=== PATIENT | male | born 1955 | race Caucasian/White ===

== ENCOUNTER 2023-07-21 12:41 | Outpatient (CLI) | payer MEDICARE, BC, SELFPAY ==
--- NOTE | 2023-07-21 13:00 | CRLHL7_ITS ---
For Patients: As a result of the Century Cures Act, medical imaging exams and procedure reports are released immediately into your electronic medical record. You may view this report before your referring provider. If you have questions, please contact your health care provider. INDICATION: Transient ischemic attack. TECHNIQUE: CTA head with contrast bolus tracking, 3D angiographic rendering using maximum intensity projection (MIP) and images permanently archived. FINDINGS: There is scattered intracranial atherosclerotic disease. There is normal opacification of the intracranial vasculature. There is no large vessel occlusion. No aneurysm is identified. IMPRESSION: No large vessel occlusion or significant intracranial stenosis. Please note that all CT scans at this facility use dose modulation, iterative reconstruction, and/or weight-based dosing when appropriate to reduce radiation dose to as low as reasonably achievable. Dictated by Inder Coughlin MD @ 07/21/2023 4:07:41 PM (Electronically Signed)
--- OUTSIDE RECORDS SUMMARY | 2023-07-21 13:22 | XMS_ITS | Clinical Summary ---
Author Name Unknown Organization [facility] Address [place], [place] [address] Care Team Providers Care Greeting Card Writer Name Role Phone Collins Garner MD Primary Care Provider [phone] Mehdi Mays MD Unavailable Allergies No known active allergies Medications Medication Sig Dispensed Refills Start Date End Date Status aspirin (ECOTRIN) 81 mg enteric coated tablet Take 1 tablet by mouth once daily with a meal. 0 06/11/2017 Active zinc 50 mg tablet 0 06/28/2021 Active magnesium 250 mg tab 0 06/28/2021 Acti ve vitamin D3/vitamin K2, MK4, (K2 PLUS D3 ORAL) 0 06/29/2021 Active coenzyme q10 100 mg cap Take 3 Capsules (300 mg) by mouth once daily. 0 09/25/2021 Active losartan (COZAAR) 50 mg tabletIndications:HT N (hypertension) Take 1 Tablet (50 mg) by mouth once daily. 90 Tablet 3 08/13/2022 Active metFORMIN (GLUCOPHAGE XR) 500 mg Extended-Release tabletIndications:Ty pe 2 diabetes mellitus without complication, without long-term current use of insulin (HC) Take 4 Tablets (2,000 mg) by mouth once daily with evening meal. 360 Tablet 3 08/13/2022 Active omeprazole 20 mg tabletIndications:Ch ronic GERD Take 1 Tablet (20 mg) by mouth once daily before a meal. 90 Tablet 3 08/13/2022 Active rosuvastatin (CRESTOR) 40 mg tabletIndications:Hy perlipidemia, unspecified hyperlipidemia type Take 1 Tablet (40 mg) by mouth at bedtime. 90 Tablet 3 08/13/2022 Active hydroCHLOROthiazide (HCTZ) 25 mg tabletIndications:HT N (hypertension) Take 1 Tablet (25 mg) by mouth once daily. 90 Tablet 3 08/13/2022 Active ezetimibe (ZETIA) 10 mg tabletIndications:Hy perlipidemia, unspecified hyperlipidemia type Take 1 Tablet (10 mg) by mouth once daily. Further refills require cardiology follow up 90 Tablet 3 08/13/2022 Active atenoloL (TENORMIN) 25 mg tabletIndications:HT N (hypertension) Take 1 Tablet (25 mg) by mouth once daily. 90 Tablet 3 08/13/2022 Active blood-glucose meterIndications:Typ e 2 diabetes mellitus without complication, without long-term current use of insulin (HC) [employer] brand per insurance. Dispense meter, test strips, lancets covered by pt ins. E11.9 NIDDM type II - Test 1 time/day 1 Each 0 08/13/2022 Active FreeStyle Chun 2 ReaderIndications:Ty pe 2 diabetes mellitus without complication, without long-term current use of insulin (HC) To be used to read blood sugars per certified flex endoscope reprocessor's directions. 1 Each 0 08/13/2022 Active FreeStyle Chun 2 SensorIndications:Ty pe 2 diabetes mellitus without complication, without long-term current use of insulin (HC) Change sensor every 14 days 6 Each 3 08/13/2022 Active CPAPIndications:MARCIO (obstructive sleep apnea),Dry mouth CPAP machine for home use at pressure: 4-9 cmw , Heated humidifier x 1 q 5 yr, Humidifier chamber x 1 q 6 mo, nasal mask x1 q 3mos, with cushion x 2 q mo, Heated tubing x 1 q 3 mo, Headgear x 1 q 6 mo, Filters: Disposable x 2 q mo non-disposable filters x1 q 6mo, Length of Need: 99 months, Frequency of use: Daily 1 Each 09/01/2022 Active semaglutide (Ozempic) 2 mg/3 mL penIndications:Type 2 diabetes mellitus without complication, without long-term current use of insulin (HC) Inject 0.375 mL (0.25 mg) subcutaneous once weekly. 3 mL 0 02/03/2023 Active sildenafiL, pulm.hypertension, (REVATIO) 20 mg tabletIndications:Er ectile dysfunction, unspecified erectile dysfunction type TAKE 1 TO 5 TABLETS BY MOUTH 30 MINUTES PRIOR TO INTERCOURSE (START AT LOWER DOSE, INCREASE IF NEEDED) MAX OF ONE DOSE PER 24 HOURS 30 Tablet 0 06/07/2023 Active Active Problems Problem Noted Date Diagnosed Date Appendicitis 06/24/2021 Type 2 diabetes mellitus wit h other circulatory complications 06/24/2021 Hyperlipidemia 06/04/2014 MARCIO 05/14/2014 AHI-8, REM 53 05/21/2014 HTN (hypertension) 04/27/2014 Diabetes mellitus, type 2 04/27/2014 Erectile dysfunction 09/22/2012 GERD (gastroesophageal reflux disease) 0 Benign neoplasm of colon 07/02/2009 Overview: Colonoscopy 06/2008 polyps repeat in 3 year Colonoscopy 05/2012 polyp repeat in 5 years Colonoscopy 10/2017 diverticulosis, repeat in 5 years Colonoscopy 10/2022 SSA, repeat in 5 years Resolved Problems Problem Noted Date Diagnosed Date Resolved Date Chronic rhinosinusitis 05/31/201206/24 Skin tag 05/31/2012 06/24/2018 Fibroma 05/31/2012 06/24/2018 Overview: Right lower leg Obesity, unspecified 05/31/2012 018 Sleep disorder 06/23/2010 06/04/2014 Prediabetes 05/06/2010 04/27/2014 MARCIO (obstructive sleep apnea) 05/06/2010 10/04/2014 Tobacco abuse 05/06/2010 05/13/2015 Colon cancer screening 05/27/200905/06 Unspecified essential hypertension 01/19/2009 04/27/2014 Other and unspecified hyperlipidemia 01/19/2009 06/04/2014 Elevated glucose 01/19/2009 05/06/2010 Encounters Date Type Department Care Team Description 07/06/2023 11:40 AM RETURNS CLERK Office Visit [facility] [address] [place] [address] Junior Stern MD Follow Up (Follow up after MRI ) 07/06/2023 Travel 07/01/2023 2:45 PM RETURNS CLERK Ancillary Procedure [facility] [address] [place] [address] 07/01/2023 Telephone [facility] [address] [place] [address] Collins Garner MD Lab 07/01/2023 Travel 06/08/2023 2:40 PM RETURNS CLERK Office Visit [facility] [address] [facility] [address] Junior Stern MD Consult (VISUAL DISTURBANCE MRI BRAIN (STROKE)-05/24/20 DIABETES EYE/OCULAR /EXAM-05/19/21, 11/20/21 REF: DR GARNER /) 06/08/2023 Travel 06/07/2023 Refill [facility] [address] [facility] [address] Collins Garner MD Refill Request (Sildenafil (Pulm.hypertension)) from Last 3 Months Immunizations Name Administration Dates Next Due AMB Influenza, IIV3 (Age >=3 years)(Flu Clinic Only) 04/24/2013 AMB Influenza, IIV4 PF (=>6 mos Flulaval,Fluzone Fluarix)(Flu Clinic Only) 03/16/2019,04/15/2018,04/25/2014 Amb Influenza, Inactivated A IIV4 (Age 65+ Years) Preserv Free 05/02/2020 COVID-19 vaccine (Moderna 100mcg/0.5mL) PF, MDV 05/15/2021,09/20/2020,08/23/2020 Influenza, High-dose Quadriv alent Inactivated 05/16/2021 Influenza, IIV3 (Age 6-35 mos) 04/30/2011 Influenza, IIV3 (Age >=3 years) 05/31/20 12,04/30/2011,05/06/2010,2007,05/25/2003 Influenza, IIV4 03/23/2017,03/19/2016,05/13/2015 Influenza, Inactivated AIIV4 (Age 65+ Years) Preserv Free 03/23/2023,04/02/2022 Pneumococcal Conj 20-valent (Prevnar 20) 01/01/2022 Pneumococcal Poly,23-Valent (Pneumovax) 05/09/2020 Td (Age >=7 Years) 10/31/1996 Tdap 03/23/2017,01/26/2007 Zoster (Shingrix-RZV, recombinant) 10/14/2022, Zoster (Zostavax-ZVL, live) 05/13/2015 Family History Medical History Relation Name Comments Diabetes Father Heart Disease Father Heart Disease Mother Diabetes Sister Relation Name Status Comments Father Mother Sister Social History Tobacco Use Types Packs/Day Years Used Date Smoking Tobacco: Former Cigarettes 0.5 10 1 08/09/2001 - 06/08/2012 Smokeless Tobacco: Never Tobacco Cessation:Counseling Given: Yes Alcohol Use Standard Drinks/Week Comments Yes 1 (1 standard drink = 0.6 oz pur e alcohol) minimal PHQ-2 Answer Date Recorded PHQ-2 TOTAL SCORE 0 08/13/2022 Social Connections Answer Date Recorded Frequency of Communication with Friends and Fami ly Not on file 11/03/2022 Financial Resource Strain Answer Date R ecorded Difficulty of Paying Living Expenses 3 11/12/2022 Difficulty of Paying Living Expenses Not on file 11/12/2022 Food Insecurity Answer Date Recorded Worried About Running Out of Food in the Last Ye ar 1 11/12/2022 Transportation Needs Answer Date Record ed Lack of Transportation (Medical) 1 11/12/2022 Housing Stability Answer Date Recorded Unable to Pay for Housing in the Last Year 1 11/12/2022 Sex and Gender Information Value Date Recorded Sex Assigned at Not on file Gender Identity Not on file Sexual Orientation Not on file Obstetrics History Last Filed Vital Signs Vital Sign Reading Time Taken Comments Blood Pressure 151/74 07/06/2023 11:37 AM RETURNS CLERK Pulse 59 07/06/2023 11:37 AM RETURNS CLERK Temperature 36.7 ??C (98.1 ??F) 12/03/2020 11:51 AM C DT Respiratory Rate 20 11/18/2022 9:10 AM CDT Oxygen Saturation 97% 07/06/2023 11:37 AM RETURNS CLERK Inhaled Oxygen Concentration - - Weight 83.5 kg (184 lb) 06/08/2023 2:35 PM RETURNS CLERK Height 164.6 cm (5' 4.8) 11/12/2022 10:00 AM CD T Body Mass Index 30.81 11/12/2022 10:00 AM CDT Plan of Treatment Upcoming Encounters Date Type Department Care Team (Late st Contact Info) Description 08/19/2023 11:30 AM RETURNS CLERK Office Visit [facility] [address] [place] [address] Collins Garner MD [address] [place] [address] Health Maintenance Due Date Last Done Comments COVID-19 vaccine series ( season) 2023 05/15/2021, 09/20/2020, 08/23/2020 Depression screening for age 12+ 08/13/2023 08/13/2022, 08/13/2022, 06/24/2021, Additional history exists Medicare Wellness for age 65+ 08/13/2023, 06/24/2021, 05/09/2020 BMI (ht and wt on same day) for age 18+ 11/13/2023 11/12/2022, 08/13/2022, 10/30/2021, Additional history exists Tetanus booster 03/23/2027 03/23/2017, 0806/2006, 10/31/1996 Lipids for age 45-75 03/30/2027 03/30/2022, 05/20/2021, 06/07/2020, Additional history exists Colonoscopy through age 75 11/19/202711/18, 11/18/2022, 11/18/2022, Additional history exists Hepatitis C screening for ag e 18-79 Completed 09/11/2015 Tdap Completed 03/23/2017, 01/26/2007 AAA screening age 65-74 Completed 07/28/2021, 09/26 Pneumococcal series for age 65+ Completed , 05/09/2020 Zoster (shingles) series for age 50+ Completed 10/14/2022, 07/23/2022, 05/13/2015 Influenza for age 65+ Completed 03/23/2023 , 04/02/2022, 05/16/2021, Additional history exists Procedures Procedure Name Priority Date/Time Associated Diagnosis Comments MR ANGIO HEAD AND NECK STROKE INC BRAIN WO AND NECK W/WO Routine 07/01/2023 4:18 PM RETURNS CLERK TIA (transient ischemic attack) from Last 3 Months Results * MR ANGIO HEAD AND NECK STROKE INC BRAIN WO AND NECK W/WO (07/01/2023 4:18 PM RETURNS CLERK) Anatomical Region Laterality Modality HEAD, BRAIN, NECK Magnetic Reson ance 07/01/2023 5:19 PM RETURNS CLERK Addenda Addendum by Hiram Zacarias MD on 07/01/2023 5:21 PM RETURNS CLERK For Patients: ??As a result of the 21st Century Cures Act, medical imaging exams and procedure reports are released immediately into your electronic medical record. ??You may view this report before your referring provider. ?? If you have questions, please contact your health care provider. INDICATION: Intermittent blurred vision. TECHNIQUE: MRI brain: Multiplanar multisequence noncontrast MR images acquired. MRA head: [id number] imaging acquired. MRA neck: [id number]-uy-gdsqah and postcontrast imaging acquired. COMPARISON: MRI brain and MRA neck 05/24/2020. FINDINGS: MRI brain: Prominence of the ventricles and sulci compatible with mild diffuse cerebral volume loss. No mass effect or midline shift. Stable scattered FLAIR hyperintensities in the supratentorial white matter, typical for minimal chronic microvascular ischemic changes. No diffusion restriction to suggest acute infarction. No intracranial hemorrhage or pathologic extra-axial fluid collection. New chronic lacunar infarctions left cerebellar hemisphere. The major arterial flow voids of the skullbase are preserved. The globes are symmetric. Minimal ethmoid sinus mucosal thickening. Trace left mastoid fluid. MRA head: The internal carotid, middle cerebral, and anterior cerebral arteries are widely patent. The vertebral, basilar, and posterior cerebral arteries are widely patent. No intracranial aneurysm or high-flow vascular malformation. MRA neck: The innominate and subclavian arteries are widely patent. The common carotid arteries are widely patent. The internal carotid arteries are widely patent. The left vertebral artery origin and proximal V1 segment are suboptimally evaluated, though potentially stenotic. The dominant right vertebral artery is widely patent. IMPRESSION: MRI brain: 1. No acute intracranial abnormality. 2. New chronic lacunar infarctions left cerebellar hemisphere. 3. Stable mild diffuse cerebral volume loss and minimal chronic microvascular changes. MRA head/neck: 1. Unremarkable MRA of the head. 2. The left vertebral artery origin and proximal V1 segment are suboptimally evaluated, though potentially stenotic. ??The cervical arteries are otherwise widely patent. Dictated by Hiram Zacarias MD @ 07/01/2023 5:20:03 PM (Electronically Signed) Addendum by Hiram Zacarias MD on 07/01/2023 5:19 PM RETURNS CLERK For Patients: ??As a result of the Cures Act, medical imaging exams and procedure reports are released immediately into your electronic medical record. ??You may view this report before your referring provider. ?? If you have questions, please contact your health care provider. INDICATION: Intermittent blurred vision. TECHNIQUE: MRI brain: Multiplanar multisequence noncontrast MR images acquired. MRA head: [id number]-[id number]-tytzji imaging acquired. MRA neck: Zayh-ie-rgxcaw and postcontrast imaging acquired. COMPARISON: MRI brain and MRA neck 05/24/2020. FINDINGS: MRI brain: Prominence of the ventricles and sulci compatible with mild diffuse cerebral volume loss. No mass effect or midline shift. Stable scattered FLAIR hyperintensities in the supratentorial white matter, typical for minimal chronic microvascular ischemic changes. No diffusion restriction to suggest acute infarction. No intracranial hemorrhage or pathologic extra-axial fluid collection. New chronic lacunar infarctions left cerebellar hemisphere. The major arterial flow voids of the skullbase are preserved. The globes are symmetric. Minimal ethmoid sinus mucosal thickening. Trace left mastoid fluid. MRA head: The internal carotid, middle cerebral, and anterior cerebral arteries are widely patent. The vertebral, basilar, and posterior cerebral arteries are widely patent. No intracranial aneurysm or high-flow vascular malformation. MRA neck: The innominate and subclavian arteries are widely patent. The common carotid arteries are widely patent. The internal carotid arteries are widely patent. The left vertebral artery origin and proximal V1 segment are suboptimally evaluated, though potentially stenotic. The dominant right vertebral artery is widely patent. IMPRESSION: MRI brain: 1. No acute intracranial abnormality. 2. New chronic lacunar infarctions left cerebellar hemisphere. 3. Stable mild diffuse cerebral volume loss and minimal chronic microvascular changes. MRA head/neck: 1. Unremarkable MRA of the head. 2. The left vertebral artery origin and proximal V1 segment are suboptimally evaluated, though potentially stenotic. ??The cervical arteries are otherwise widely patent. Dictated by Hiram Zacarias MD @ 07/01/2023 5:19:46 PM (Electronically Signed) Impressions 07/01/2023 5:19 PM RETURNS CLERK MRI brain: 1. No acute intracranial abnormality. 2. New chronic lacunar infarctions left cerebellar hemisphere. 3. Stable mild diffuse cerebral volume loss and minimal chronic microvascular changes. MRA head/neck: 1. Unremarkable MRA of the head. 2. The left vertebral artery origin and proximal V1 segment are suboptimally evaluated, though potentially stenotic. ??The cervical arteries are otherwise widely patent. Dictated by Hiram Zacarias MD @ 07/01/2023 5:19:27 PM (Electronically Signed) Narrative 07/01/2023 5:19 PM RETURNS CLERK For Patients: ??As a result of the Cures Act, medical imaging exams and procedure reports are released immediately into your electronic medical record. ??You may view this report before your referring provider. ??If you have questions, please contact your health care provider. INDICATION: Intermittent blurred vision. TECHNIQUE: MRI brain: Multiplanar multisequence noncontrast MR images acquired. MRA head: Lekb-sk-qylniz imaging acquired. MRA neck: Mqbu-cp-qmyhwb and postcontrast imaging acquired. COMPARISON: MRI brain and MRA neck 05/24/2020. FINDINGS: MRI brain: Prominence of the ventricles and sulci compatible with mild diffuse cerebral volume loss. No mass effect or midline shift. Stable scattered FLAIR hyperintensities in the supratentorial white matter, typical for minimal chronic microvascular ischemic changes. No diffusion restriction to suggest acute infarction. No intracranial hemorrhage or pathologic extra-axial fluid collection. New chronic lacunar infarctions left cerebellar hemisphere. The major arterial flow voids of the skullbase are preserved. The globes are symmetric. Minimal ethmoid sinus mucosal thickening. Trace left mastoid fluid. MRA head: The internal carotid, middle cerebral, and anterior cerebral arteries are widely patent. The vertebral, basilar, and posterior cerebral arteries are widely patent. No intracranial aneurysm or high-flow vascular malformation. MRA neck: The innominate and subclavian arteries are widely patent. The common carotid arteries are widely patent. The internal carotid arteries are widely patent. The left vertebral artery origin and proximal V1 segment are suboptimally evaluated, though potentially stenotic. The dominant right vertebral artery is widely patent. Procedure Note Hiram Zacarias MD - 07/01/2023 For Patients: As a result of the Century Cures Act, medical imagingexams and procedure reports are released immediately into your electronicmedical record. You may view this report before your referring provider.If you have questions, please contact your health care provider. INDICATION: Intermittent blurred vision. TECHNIQUE: MRI brain: Multiplanar multisequence noncontrast MR images acquired. MRA head: Wkly-zv-onqkgo imaging acquired. MRA neck: Buqs-nh-irlhbg and postcontrast imaging acquired. COMPARISON: MRI brain and MRA neck 05/24/2020. FINDINGS: MRI brain: Prominence of the ventricles and sulci compatible with mild diffusecerebral volume loss. No mass effect or midline shift. Stable scatteredFLAIR hyperintensities in the supratentorial white matter, typical forminimal chronic microvascular ischemic changes. No diffusion restriction to suggest acute infarction. No intracranialhemorrhage or pathologic extra-axial fluid collection. New chronic lacunarinfarctions left cerebellar hemisphere. The major arterial flow voids of the skullbase are preserved. The globesare symmetric. Minimal ethmoid sinus mucosal thickening. Trace leftmastoid fluid. MRA head: The internal carotid, middle cerebral, and anterior cerebral arteries arewidely patent. The vertebral, basilar, and posterior cerebral arteries are widelypatent. No intracranial aneurysm or high-flow vascular malformation. MRA neck: The innominate and subclavian arteries are widely patent. The common carotid arteries are widely patent. The internal carotid arteries are widely patent. The left vertebral artery origin and proximal V1 segment are suboptimallyevaluated, though potentially stenotic. The dominant right vertebralartery is widely patent. IMPRESSION: MRI brain: 1. No acute intracranial abnormality. 2. New chronic lacunar infarctions left cerebellar hemisphere. 3. Stable mild diffuse cerebral volume loss and minimal chronicmicrovascular changes. MRA head/neck: 1. Unremarkable MRA of the head. 2. The left vertebral artery origin and proximal V1 segment aresuboptimally evaluated, though potentially stenotic. The cervicalarteries are otherwise widely patent. Dictated by Hiram Zacarias MD @ 07/01/2023 5:19:27 PM (Electronically Signed) Junior Stern MD MR from Last 3 Months Care Teams Greeting Card Writer Relationship Specialty Start Date End Date Collins Garner MD [address] [place] [address] PCP - General Family Practice 02/05/17 Mehdi Mays MD [address] [place] [address] Surgery - Otolaryngology 09/16/21
--- OUTSIDE RECORDS SUMMARY | 2023-07-21 13:22 | XMS_ITS | Patient Health Record ---
Author Name Unknown Organization [facility] Address [address] [place] [address] Care Team Providers Care Coffee Maker Name Role Phone Mack Carcamo MD Primary Care Provider [phone] Mack Carcamo MD Unavailable Unavailabl e ALLERGIES No Known Allergies REASON FOR REFERRAL No Information MEDICATIONS Medication SIG (Take, Route, Frequency, Duration) Notes Start Date End Date Status Atenolol 25 MG Oral for 30 Act tomy hydroCHLOROthiazide 25 MG Oral for 90 Active Losartan Potassium 50 MG Oral for 45 Active Rosuvastatin Calcium 40 MG Oral for 90 Active Ezetimibe 10 MG Oral for 60 Ac tive metFORMIN HCl ER 500 MG Oral for 90 Active SOCIAL HISTORY Sex Assigned At : Social History Observation Description Sex Assigned At Unknown PROBLEMS Problem Type ICD Code Onset Dates Problem Status W/U Status Risk SNOMED Code Notes Problem Diabetes (E11.9) Active confirmed Diabe iris mellitus without complication (717587177) Problem Hypertension (I10) Active confirmed Hypertension (49744839) Problem High cholesterol (E78.00) Active confirmed High cholestero l (30529208) PLAN OF TREATMENT No Information Insurance Providers Payer Name Payer Address Payer Phone Subscriber Number Group Number Insured Name Patient Relationship to Insured Coverage Start Date Coverage End Date [facility] [address] [place] [phone] [id number] Herman Juarez Self - patient is the insured [facility] [address] [place] [address] [id number] Herman Juarez Self - patient is the insured MEDICAL (GENERAL) HISTORY Medical History History ICD Code Diabetes E11.9 High cholesterol E78.00 Hypertension I10 Surgical History Surgery Date(Month/Year) appendectomy
[2023-07-21 13:30] LABS: Creatinine* 0.8 mg/dL (0.5-1.5); Estimated Glomerular Filt Rate 96 ml/min
--- NOTE | 2023-07-21 13:30 | CRLHL7_ITS ---
For Patients: As a result of the Century Cures Act, medical imaging exams and procedure reports are released immediately into your electronic medical record. You may view this report before your referring provider. If you have questions, please contact your health care provider. INDICATION: Transient ischemic attack. TECHNIQUE: CTA neck with contrast bolus tracking, 3D angiographic rendering using maximum intensity projection (MIP) and images permanently archived. FINDINGS: There is minor carotid atherosclerosis. There is no significant carotid artery stenosis or dissection. There is no significant vertebral artery stenosis or dissection. The soft tissues of the neck are within normal limits. The cervical spine is in normal alignment. Degenerative changes are noted in the cervical spine. IMPRESSION: No significant carotid or vertebral artery stenosis or dissection. Please note that all CT scans at this facility use dose modulation, iterative reconstruction, and/or weight-based dosing when appropriate to reduce radiation dose to as low as reasonably achievable. Dictated by Inder Coughlin MD @ 07/21/2023 4:09:38 PM (Electronically Signed)
== END 2023-07-21 12:42 | disposition home or self-care (01) ==
PROVIDERS: PCP Surgery; Visit Provider Radiology Neuroradiology
DX: G45.9 Transient cerebral ischemic attack, unspecified (principal)
CPT/HCPCS: 36415; 70496; 70498; 82565; Q9967